=== PATIENT | female | born 1995 | race Caucasian/White ===

== ENCOUNTER 2023-09-04 15:01 | Outpatient (CLI) | payer OTHER, SELFPAY | END 2023-09-04 15:02 | disposition home or self-care (01) | LOC: NFLDREF 09-05 06:36 | PROVIDERS: PCP Physician Assistant; Referring Provider Physician Assistant; Visit Provider Registered Nurse | DX: R10.9 Unspecified abdominal pain (principal); R10.84 Generalized abdominal pain | CPT/HCPCS: 87086 ==

== ENCOUNTER 2025-06-05 10:35 | Outpatient (CLI) | payer OTHER, SELFPAY | END 2025-06-05 10:36 | disposition home or self-care (01) | PROVIDERS: PCP Physician Assistant; Visit Provider Physician Assistant | DX: Z13.9 Encounter for screening, unspecified (principal) | CPT/HCPCS: 80061; 82947; 84443 ==